=== PATIENT | male | born 1935 | race Asian ===

== ENCOUNTER 2018-08-06 06:06 | Day surgery (SDC) | payer MEDICARE ==
[~2018-08-06] VITALS: Ht 152.4 cm; Wt 85.4 kg
--- NOTE | 2018-08-06 07:12 | PREAC ---
Date/Time of Note Date/Time of Note DATE: 08/06/18 TIME: 07:11 Anesthesia Eval and Record Evaluation Time Pre-Procedure Interview DATE: 08/06/18 TIME: 07:11 Age 82 Sex male NPO: 8 hrs Preoperative diagnosis screening Planned procedure colonoscopy Past Medical History Past Medical History: Includes Cardio: HTN, Dyslipidemia, Other (carotid endarterectomy) Endo: Diabetes Neuro: CVA, Peripheral neuropathy GI: GERD Psych: Anxiety Surgery & Anesthesia Issues No known issue Meds Anticoagulation: No Beta Lucia within 24 hr: No Reason Beta Lucia not given: Pt. not on B-Lucia Meds reviewed: Yes Allergies Coded Allergies: carisoprodol (Verified Allergy, Unknown, 08/06/18) Uncoded Allergies: seafood (Allergy, Unknown, 08/06/18) Allergies Reviewed: Yes Labs/Studies Labs Reviewed: Reviewed by anesthesiologist test: N/A Studies: ECG, CXR Pre-procedure Exam Airway: Adequate mouth opening, Adequate thyromental dist Mallampati: Mallampati III Teeth: Normal Lung: Normal Heart: Normal ASA Physical Status ASA physical status: 3 Emergency: None Planned Anesthetic General/MAC: MAC Planned Pain Management Parenteral pain med Pre-operative Attestations Prior to commencing anesthesia and surgery, the patient was re-evaluated, there was verification of: *The patient's identity *The results of appropriate recent lab work and preoperative vital signs *The above evaluation not changing prior to induction *Anesthetic plan, risk benefits, alternative and complications discussed with patient/family; questions answered; patient/family understands, accepts and wishes to proceed. CEM VELÁSQUEZ MD Aug 06, 2018 07:12
[2018-08-06] MEDS ORDERED: ETOMIDATE 20 MG INJ ONE (07:14)
[2018-08-06] MEDS ORDERED: PROPOFOL 40 ML ONE (07:14)
[2018-08-06 07:15] VITALS: BP 175/78; PULSE 84; RESP 16; Ht 152.4 cm; Wt 85.4 kg
[2018-08-06] MEDS ORDERED: LABETALOL HCL 20MG INJ IV PRN (07:30)
[2018-08-06] MEDS ORDERED: hydrALAzine 20 MG INJ IV PRN (07:30)
[2018-08-06] MEDS ORDERED: MIDAZOLAM 1 MG/ML 2 ML INJ IV PRN (07:30)
[2018-08-06] MEDS ORDERED: DIPHENHYDRAMINE 50 MG INJ IV PRN (07:30)
[2018-08-06] MEDS ORDERED: ONDANSETRON 4 MG INJ IV PRN (07:30)
[2018-08-06] MEDS ORDERED: FENTAnyl 50 MCG/ML VIAL IV PRN (07:30)
[2018-08-06] MEDS ORDERED: HYDROmorphONE 1 MG/5 ML IV SYRINGE IV PRN (07:30)
[2018-08-06] MEDS ORDERED: MEPERIDINE 25 MG INJ IV PRN (07:30)
[2018-08-06] MEDS ORDERED: benazepril (07:40)
[2018-08-06] MEDS ORDERED: metformin (07:40)
[2018-08-06] MEDS ORDERED: januvia (07:40)
[2018-08-06] MEDS ORDERED: atorvastatin (07:41)
[2018-08-06] MEDS ORDERED: amlodipine (07:41)
[2018-08-06] MEDS ORDERED: glipizide (07:41)
[2018-08-06 09:05] VITALS: BP 152/71; PULSE 78; RESP 18
--- NOTE | 2018-08-06 16:36 | PAC ---
Date/Time of Note Date/Time of Note DATE: 08/06/18 TIME: 16:36 Post-Anesthesia Notes Post-Anesthesia Note Last documented vital signs Vital Signs Date Temp Pulse Resp B/P (MAP) Pulse Ox O2 O2 Flow FiO2 Time Delivery Rate 08/06/18 78 18 152/71 98 Room Air 09:05 (98) 08/06/18 98.0 07:15 Activity: WNL Respiratory function: WNL Cardiovascular function: WNL Mental status: Baseline Pain reasonably controlled: Yes Hydration appropriate: Yes Nausea/Vomiting absent: Yes CEM VELÁSQUEZ MD Aug 06, 2018 16:36
== END 2018-08-06 11:20 | disposition home or self-care (01) ==
LOC: GIL 06:06
PROVIDERS: ATTEND Internal Medicine Gastroenterology
DX: Z86.010 Personal history of colon polyps (principal); K64.4 Residual hemorrhoidal skin tags; K57.30 Diverticulosis of large intestine without perforation or abscess without bleeding; D12.4 Benign neoplasm of descending colon; I10 Essential (primary) hypertension; E11.9 Type 2 diabetes mellitus without complications
CPT/HCPCS: 82962; 88305